=== PATIENT | male | born 1970 | race Two or more races ===

== ENCOUNTER 2021-08-14 10:00 | Emergency (ER) | payer BC ==
[~2021-08-14] VITALS: Ht 185.4 cm; Wt 93.0 kg
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
--- NOTE | 2021-08-14 10:52 | NUR ---
PT TAKENT TO CT VIA [facility]
[2021-08-14] MEDS ORDERED: IBUP-1955 PO (12:01)
[2021-08-14] MEDS ORDERED: CARI250T PO (12:01)
--- NOTE | 2021-08-14 12:10 | NUR ---
Patient discharged to home in stable condition. Written and verbal after care instructions given. Patient verbalizes understanding of instruction.
[2021-08-14 12:11] VITALS: BP 118/68
== END 2021-08-14 12:11 | disposition home or self-care (01) ==
LOC: ER 10:08
DX: S40.011A Contusion of right shoulder, initial encounter (principal); S20.219A Contusion of unspecified front wall of thorax, initial encounter; S09.90XA Unspecified injury of head, initial encounter; Y08.89XA Assault by other specified means, initial encounter; Y93.89 Activity, other specified; Y92.89 Other specified places as the place of occurrence of the external cause; Y99.8 Other external cause status
CPT/HCPCS: 70450-TC; 71045-TC; 72125-TC; 73030-TC